=== PATIENT | male | born 1980 | race Two or more races ===

== ENCOUNTER → 2024-06-25 06:53 | Outpatient (REF) | payer BC, SELFPAY | LOC: RAD 06:53 | PROVIDERS: ATTENDING PHYSICIAN Otolaryngology; FAMILY PHYSICIAN Internal Medicine | DX: J33.0 Polyp of nasal cavity (principal); R09.81 Nasal congestion; J34.2 Deviated nasal septum | CPT/HCPCS: 70486 ==

== ENCOUNTER → 2024-09-20 16:22 | Outpatient (REF) | payer BC, SELFPAY | LOC: CLAB 16:22 | PROVIDERS: ATTENDING PHYSICIAN Otolaryngology | DX: J34.2 Deviated nasal septum (principal); J32.9 Chronic sinusitis, unspecified | CPT/HCPCS: 88304; 88311 ==